=== PATIENT | male | born 1995 | race Two or more races ===

== ENCOUNTER 2024-05-04 10:57 | Emergency (ER) | payer OTHER ==
[~2024-05-04] VITALS: Ht 172.7 cm; Wt 77.1 kg
[~2024-05-04 10:57] MED LIST: DICLOFENAC SODI75 MG PO
[2024-05-04] MEDS ORDERED: TETANUS & DIPHTHERIA TOX,ADULT 0.5 ML VIAL IM ONE (11:15)
[2024-05-04] MEDS ORDERED: CEFTRIAXONE SODIUM 1,000 MG VIAL IM ONE (11:15)
[2024-05-04] MEDS ORDERED: LIDOCAINE HCL 1% 10ML VIAL PERCUT ONE (11:15)
[2024-05-04] MEDS ORDERED: KETOROLAC TROMETHAMINE 60 MG VIAL IM ONE (11:15)
[2024-05-04] MEDS ORDERED: PEPCID AC20 MG PO (11:29)
[2024-05-04] MEDS ORDERED: CEPHALEXIN750 MG PO (11:29)
== END 2024-05-04 11:52 | disposition home or self-care (01) ==
LOC: ER 10:59
DX: S91.012A Laceration without foreign body, left ankle, initial encounter (principal); X83.8XXA Intentional self-harm by other specified means, initial encounter; Y93.89 Activity, other specified; Y92.098 Other place in other non-institutional residence as the place of occurrence of the external cause; Y99.8 Other external cause status